=== PATIENT | male | born 1945 | race African-American/Black ===

== ENCOUNTER 2019-12-23 10:31 | Emergency (ER) | payer OTHER ==
[~2019-12-23] VITALS: Ht 172.7 cm; Wt 74.8 kg
[2019-12-23 11:57] LABS: ANION GAP 9 mmol/L (7-16); BUN 17 mg/dL (7-18); CALCIUM 9.6 mg/dL (8.5-10.1); CHLORIDE 102 mmol/L (98-107); CO2 29 mmol/L (21-32); CREATININE 1.2 mg/dL (0.7-1.3); GLUCOSE 149 mg/dL (74-106); POTASSIUM 4.5 mmol/L (3.5-5.1)
[2019-12-23 11:59] LABS: SODIUM 140 mmol/L (136-145)
[2019-12-23 12:05] LABS: TROPONIN-I <0.06 ng/mL (<0.06)
[2019-12-23 12:16] LABS: HEMATOCRIT 38.2 % (42.0-52.0); HEMOGLOBIN 12.6 gm/dL (14.0-18.0); MCH 24.7 pg (26.0-34.0); MCHC 32.9 g/dL (28.0-37.0); MCV 75.3 fL (80.0-100.0); PLATELET COUNT 192 thou/uL (150-400); RBC 5.07 mil/uL (4.50-6.00); RDW 16.6 % (10.5-14.5); WBC 5.1 thou/uL (4.0-11.0)
--- NOTE | 2019-12-23 12:41 | EKG ---
[facility] [place] [place] [address] ELECTROCARDIOGRAM REPORT Name: NURIA GREY Room #: REG [facility].#: [id number] Admission: 12/23/19 Attend Phys: Discharge: Date of : 41 Report #: [id number] THIS REPORT FOR: cc: Emili Mullen MD, Sequita MD Santiago,Kadeem CHAWLA [facility] ~ THIS REPORT FOR: //name// [facility] ED Test Date: 2019-12-23 Test Time: 11:30:09 Pat Name: NURIA GREY Department: Room: Gender: M Brim Greaser Operator: [facility] : 1945 Requested By: Jesus Manuel Daugherty Order Number: [id number] MD: Kadeem Aguirre Measurements Intervals [place] Rate: 59 P: 20 ME: 169 QRS: 20 QRSD: 86 T: 51 QT: 435 QTc: 431 Interpretive Statements Sinus rhythm Anteroseptal infarct, old Baseline wander in lead(s) V6 No previous ECG available for comparison Electronically Signed On 12-23-2019 12:41:25 CDT by Kadeem Aguirre [email or web address] <ELECTRONICALLY SIGNED> By: Kadeem Aguirre MD, FAC 12/23/19 124 113 29 Kadeem Aguirre MD, [facility] /EPI
[2019-12-23 12:51] LABS: PLATELET ESTIMATE NORMAL
[2019-12-23 13:45] VITALS: BP 174/94
== END 2019-12-23 13:50 | disposition home or self-care (01) ==
LOC: ER 10:31
PROVIDERS: Nurse Practitioner
DX: I10 Essential (primary) hypertension (principal); E03.9 Hypothyroidism, unspecified

== ENCOUNTER 2020-12-18 05:20 | Inpatient (IN) | payer OTHER ==
[~2020-12-18] VITALS: Ht 177.8 cm; Wt 72.6 kg
[2020-12-18 05:30] VITALS: BP 174/89
[2020-12-18 05:54] LABS: ABSOLUTE NEUTROPHILS 2.3 thou/uL (1.4-8.2); BASOPHILS 0.7 % (0.0-2.0); HEMATOCRIT 36.7 % (42.0-52.0); HEMOGLOBIN 11.9 gm/dL (14.0-18.0); LYMPHOCYTES 43.7 % (24.0-44.0); MCHC 32.3 g/dL (28.0-37.0); MCV 77.3 fL (80.0-100.0); MONOCYTES 14.3 % (1.0-8.0); PLATELET COUNT 219 thou/uL (150-400); POLYS 40.3 % (36.0-66.0); RBC 4.75 mil/uL (4.50-6.00); RDW 16.1 % (10.5-14.5); WBC 5.8 thou/uL (4.0-11.0)
--- NOTE | 2020-12-18 06:06 | NUR ---
0546 - Nitroglycerin gtt started at 5mcg/min, this RN noted order for Nitro states 10ml/hr which is not what the provider wishes, notified ERP who is looking for a titratable order for Nitro gtt.
[2020-12-18 06:23] LABS: ANION GAP 9 mmol/L (7-16); BUN 22 mg/dL (7-18); CALCIUM 8.6 mg/dL (8.5-10.1); CHLORIDE 109 mmol/L (98-107); CO2 29 mmol/L (21-32); CREATININE 1.5 mg/dL (0.7-1.3); GLUCOSE 211 mg/dL (74-106); POTASSIUM 4.2 mmol/L (3.5-5.1); SODIUM 147 mmol/L (136-145)
[2020-12-18 07:14] LABS: INR 0.94; PROTIME 10.3 Seconds (10.5-12.1)
[2020-12-18] MEDS ORDERED: EZETIMIBE10 MG PO (08:39)
[2020-12-18] MEDS ORDERED: JARDIANCE10 MG PO (08:39)
[2020-12-18] MEDS ORDERED: ALLOPURINOL 10100 M2 PO (08:40)
[2020-12-18] MEDS ORDERED: LEVOTHYROXINE25 MCG PO (08:40)
--- NOTE | 2020-12-18 09:18 | EKG ---
[place] [address] [facility] [place] [address] ELECTROCARDIOGRAM REPORT Name: NURIA GREY Room #: REG MACY Barger#: [id number] Admission: 12/18/20 Attend Phys: Discharge: Date of : 41 Report #: [id number] [facility] ED Test Date: 2020-12-18 Test Time: 05:29:25 Pat Name: NURIA GREY Department: Room: Gender: M Scoop Machine Operator: mary reis : 1945 Requested By: Kike Stephenson Order Number: [id number] MD: Sam Sheriff Measurements Intervals [place] Rate: 61 P: 29 [place]: 165 QRS: 5 QRSD: 90 T: 91 QT: 466 QTc: 470 Interpretive Statements Sinus rhythm LVH with secondary repolarization abnormality Compared to ECG 12/23/2019 11:30:09 Left ventricular hypertrophy now present Early repolarization now present Myocardial infarct finding no longer present Electronically Signed On 12-18-2020 9:17:57 CDT by Sam Sheriff [email or web address] <ELECTRONICALLY SIGNED> By: Sam Sheriff MD 12/18/20916 0529 0529 Sam Sheriff MD /ALIZE
[2020-12-18 10:13] VITALS: BP 124/87
[2020-12-18 10:56] LABS: CHOLESTEROL 219 mg/dL (<200); HDL CHOLESTEROL 58 mg/dL (>40); LDL CHOLESTEROL 116 mg/dL (<100); TC:HDL 3.8 Ratio (Not establshd); TRIGLYCERIDE 227 mg/dL (<150); VLDL 45 mg/dL (<40)
[2020-12-18 13:00] VITALS: BP 162/83
--- NOTE | 2020-12-18 13:10 | CATHLAB ---
[facility] [place] [address] INVASIVE PROCEDURE REPORT Name: NURIA GREY Room #: 204-P ADM IN M.R.#: [id number] Admission: 12/18/20 Attend Phys: Henry Jiame MD Discharge: Date of : 41 Report #: [id number] THIS REPORT FOR: cc: Emili Mullen MD, Sequita MD Park, Jin S. MD ~ APPROVED REPORT Study performed: 12/18/2020 10:09:07 Patient Details Patient Status: ED Room #: The patient is a 75 year-old male Event Personnel Sam Sheriff Remediation Consultant, Anjali Angeles RTR Monitor, Ellie Verdin RN RN, Malu Constantino RTR Scrub, Gladys Schmidt Electric Lineman Procedures Performed Art Access - R femoral artery* Left Heart Cath w/or w/o Coronaries 4845352 [facility] [address] Place w/wo Plasty Single OM 117833 DANIEL Place w/wo Plasty Single RCA 826429 Hemostasis w/ Mynx 96722 Initial Mod Sed Same Phys/QHP Gr5y 655873 55164 Mod Sed Same Phys/QHP Ea 529383 Indication Non-STEMI , Dyspnea, Chest pain Risk Factors HypercholesterolemiaPhysical Activity, Hypertension, Diabetes Procedure Narrative The Right Groin^ was infiltrated with 1% Lidocaine subcutaneous anesthesia. A PINNACLE 6FR Sheath #[id number] sheath was inserted into the RFA^. Coronary angiography was performed using coronary diagnostic catheters. The right coronary system was accessed and visualized with a JR4 catheter. The left coronary system was accessed and visualized with a JL4 catheter. The left ventricle was accessed and visualized with a PIGTAIL catheter. Pre-demployment femoral angiogram was performed . Closure device was deployed with a Fr MYNXGRIP 6/7F #[id number]. The patient tolerated the procedure well and there were no complications associated with the procedure. There was no hematoma. [facility] [place] [address] INVASIVE PROCEDURE REPORT Name: MATILDANURIA Room #: 204-P [facility] IN .R.#: [id number] Admission: 12/18/20 Attend Phys: Henry Jaime MD Discharge: Date of : 41 Report #: [id number] Intraoperative Conscious Sedation Sedation start time: 10:59 Case end Time: 12:06 Fentanyl 50 mcg Versed 1 mg Fluoro Time: 17.00 minutes Dose: DAP 25781.20 cGycm2 1894 mGy Contrast Type and Amount: Visipaque 315 ml Coronary Angiography The patient's coronary anatomy is co- dominant. Diagnostic Cath Left Main The left main artery is a large-caliber vessel, appears angiographically normal. LAD The LAD is a moderate-sized caliber vessel, traverses the anterior wall and wraps around the apex. There is mild to moderate diffuse disease in the midsegment, 30 to 40%. Diagonal 1 This is a small to moderate-sized caliber vessel, with a moderate stenosis in the proximal segment, 50%. Diagonal 2 This is a small to moderate-sized caliber vessel, patent with no flow-limiting lesions. Circumflex The left circumflex artery is a codominant vessel, supplies 3 obtuse marginal arteries. There is mild disease in the proximal segment. OM1 There is a severe stenosis in the proximal segment, 90%. OM2 This is a moderate-sized caliber vessel, patent with no flow-limiting lesions. OM3 This is a small to moderate-sized caliber vessel, patent with no flow-limiting lesions. Right Coronary The RCA is a moderate-sized caliber vessel with mild diffuse disease proximally. There is a severe stenosis in the distal segment, 95%. R PDA There is a severe occlusion in the proximal segment, 95%. Left Ventriculography Left Ventriculography was not performed. An LVEDP was measured and there is no gradient across the outflow tract. Hemodynamics The aortic pressure is 142/67 mmHg with a mean of 44 mmHg. The left ventricular pressure is 145/5 mmHg with a mean of mmHg. The left ventricular end diastolic pressure is 13 mmHg. [facility] [address] [place] [address] INVASIVE PROCEDURE REPORT Name: NURIA GREY Room #: 204-P [facility] IN M.R.#: [id number] Admission: 12/18/20 Attend Phys: Henry Jaime MD Discharge: Date of : 41 Report #: [id number] PCI Technique Lesion Percutaneous coronary intervention was performed on the distal right coronary artery. The lesion stenosis prior to intervention was 95% with ALEKSANDAR 3 flow. A LAUNCHER 6FR JR 4 #[id number] Guide Catheter was used to engage the ostium. A Luge Wire .014 x 182CM #[id number] Interventional Guidewire was used to cross the lesion. BALLOON DILATION A Balloon catheter Euphora RX 2.25 x 12 #[id number] was inserted and inflated up to 8.00atm for 9seconds. Additional Inflation: 8.00atm for 10seconds. STENT DEPLOYMENT A drug-eluting stent RESOLUTE ELVIN RX 2.5 X 15 #[id number] was inserted and inflated up to 18.00atm for 19seconds. POST STENT DEPLOYMENT BALLOON DILATION A Balloon catheter Euphora NC RX 2.75 x 12 #[id number] was inserted and inflated up to 14.00atm for 12seconds. Additional Inflation: 18.00atm for 15seconds. Final angiography reveals 0 % stenosis with ALEKSANDAR 3 flow. PCI Technique Lesion 2 Percutaneous Coronary Intervention was performed on the right posterior descending artery. The lesion stenosis prior to intervention was 90% with ALEKSANDAR 3 flow. A LAUNCHER 6FR JR 4 #[id number] Guide Catheter was used to engage the ostium. A Luge Wire .014 x 182CM #[id number] Interventional Guidewire was used to cross the lesion. Balloon Dilation A Balloon catheter Euphora RX 2.25 x 12 #[id number] was inserted and inflated up to 6.00atm for 13seconds. Stent Deployment A drug-eluting stent RESOLUTE ELVIN RX 2.25 X 15 #[id number] was inserted and inflated up to 12.00atm for 16seconds. Final angiography reveals 0 % stenosis with ALEKSANDAR 3 flow. PCI Technique Lesion 3 Percutaneous Coronary Intervention was performed on the first obtuse marginal branch segment. The lesion stenosis prior to intervention was 90% with ALEKSANDAR 3 flow. A VISTA 6FR XB 3.5 #398708 Guide Catheter [address] [address] INVASIVE PROCEDURE REPORT Name: NURIA GREY Room #: 204-P [facility] IN ..#: [id number] Admission: 12/18/20 Attend Phys: Henry Jaime MD Discharge: Date of : 41 Report #: [id number] was used to engage the ostium. A Luge Wire .014 x 182CM #[id number] Interventional Guidewire was used to cross the lesion. Balloon Dilation A Balloon catheter Euphora RX 2.25 x 10 #[id number] was inserted and inflated up to 8.00atm for 10seconds. Additional Inflation: 8.00atm for 8seconds. Stent Deployment A drug-eluting stent RESOLUTE ELVIN RX 2.25 X 18 #[id number] was inserted and inflated up to 12.00atm for 14seconds. Final angiography reveals 0 % stenosis with ALEKSANDAR 3 flow. Conclusion 1. Successful insertion of a drug-eluting stent into the distal RCA stenosis. 2. Successful insertion of a drug-eluting stent to the proximal PDA lesion. 3. Successful insertion of a drug-eluting stent into the proximal segment of the first obtuse marginal artery. 4. There is mild to moderate disease in the LAD and first diagonal arteries. 5. Recommend dual antiplatelet therapy and aggressive risk factor management. <ELECTRONICALLY SIGNED> By: Sam Sheriff MD 12/18/20 1310 1310 1310 Sam Sheriff MD /INF
[2020-12-18 16:00] VITALS: BP 168/89
[2020-12-18] MEDS ORDERED: METOPROLOL SUCC25 M1 PO (16:04)
[2020-12-18] MEDS ORDERED: BRILINTA90 MG PO (16:04)
[2020-12-18] MEDS ORDERED: LIPITOR40 MG PO (16:04)
[2020-12-18] MEDS ORDERED: BAYER CHEWABLE81 MG PO (16:04)
--- NOTE | 2020-12-18 19:33 | NUR ---
[age] YEAR OLD MALE ADMITTED TO AFTER HAVING HEART CATH. PT ALERT AND ORIENTED TIMES FOUR. VSS, IVF INFUSING PER ORDER. PT DENIES PAIN/SOA. RIGHT GROIN SITE SOFT DRESSING C/D/I. WILL CONTINUE TO MONITOR.
[2020-12-18 19:40] VITALS: BP 170/84
[2020-12-19 00:06] LABS: GLYCOHEMOGLOBIN (HGB A1C) 9.2 % (4.8-5.6)
[2020-12-19 00:17] VITALS: BP 161/88
[2020-12-19 02:38] VITALS: BP 161/88
[2020-12-19 04:18] LABS: HEMOGLOBIN 12.2 gm/dL (14.0-18.0); MCH 24.4 pg (26.0-34.0); MCHC 32.1 g/dL (28.0-37.0); MCV 75.8 fL (80.0-100.0); RBC 5.01 mil/uL (4.50-6.00); RDW 15.7 % (10.5-14.5); WBC 6.4 thou/uL (4.0-11.0)
--- NOTE | 2020-12-19 04:26 | NUR ---
ASSUMED PT CARE AT 1900, PT IS AWAKE, ALERT AND ORIENTEDX4, SR ON TELE, DENIES CHEST PAIN OR SOB, ASSESSMENTS CHARTED, BP ELEVATED IN THE 170S SYSTOLIC, DR. ALEX NOTIFIED, ORDERS RECEIVED AND IMPLEMENTED, RIGHT GROIN SITE CDI, NO HEMATOMA, AMBULATED TO THE BATHROOM WITH STBY ASSIST, PLAN FOR DISCHARGE TODAY, PROGRESSING WELL TOWARDS POC
[2020-12-19 04:38] VITALS: BP 149/75
[2020-12-19 04:51] LABS: ALBUMIN 3.1 g/dL (3.4-5.0); ANION GAP 8 mmol/L (7-16); BUN 19 mg/dL (7-18); CALCIUM 8.4 mg/dL (8.5-10.1); CHLORIDE 108 mmol/L (98-107); CHOLESTEROL 219 mg/dL (<200); CO2 26 mmol/L (21-32); CREATININE 1.2 mg/dL (0.7-1.3); GLUCOSE 168 mg/dL (74-106); HDL CHOLESTEROL 61 mg/dL (>40); LDL CHOLESTEROL 123 mg/dL (<100); POTASSIUM 3.8 mmol/L (3.5-5.1); SGOT 15 U/L (15-37); SGPT 18 U/L (30-65); SODIUM 142 mmol/L (136-145); TC:HDL 3.6 Ratio (Not establshd); TOTAL BILIRUBIN 0.3 mg/dL (0.2-1.0); TOTAL PROTEIN 7.3 g/dL (6.4-8.2); TRIGLYCERIDE 176 mg/dL (<150); VLDL 35 mg/dL (<40)
[2020-12-19 05:00] LABS: SERUM ASSESSMENT Clear
[2020-12-19 07:40] VITALS: BP 136/84; BP 144/82
--- NOTE | 2020-12-19 11:24 | EKG ---
[address] [place] [address] ELECTROCARDIOGRAM REPORT Name: NURIA GREY Room #: 204-P ADM IN M.R.#: [id number] Admission: 12/18/20 Attend Phys: Henry Jaime MD Discharge: Date of : 41 Report #: [id number] [facility] Test Date: 2020-12-19 Test Time: 07:25:54 Pat Name: NURIA GREY Department: Room: 204 P Gender: M Quarry Supervisor Open Pit: : 1945 Requested By: Sam Sheriff Order Number: [id number] MD: Sam Sheriff Measurements Intervals [place] Rate: 62 P: 39 PA: 165 QRS: -5 QRSD: 86 T: -18 QT: 478 QTc: 486 Interpretive Statements Sinus rhythm Anteroseptal infarct, old Compared to ECG 12/18/2020 12:53:05 No significant changes Electronically Signed On 12-19-2020 11:24:36 CDT by Sam Sheriff [email or web address] <ELECTRONICALLY SIGNED> By: Sam Sheriff MD 12/19/20 1124 0725 0725 Sam Sheriff MD /ALIZE
--- NOTE | 2020-12-19 11:35 | EKG ---
[address] [address] ELECTROCARDIOGRAM REPORT Name: NURIA GREY Room #: 204-P ADM IN M.R.#: [id number] Admission: 12/18/20 Attend Phys: Henry Jaime MD Discharge: Date of : 41 Report #: [id number] [facility] Test Date: 2020-12-18 Test Time: 12:53:05 Pat Name: NURIA GREY Department: Room: 204 P Gender: M Chicken Dresser: PANDA : 1945 Requested By: Sam Sheriff Order Number: [id number] MD: Sam Sheriff Measurements Intervals [place] Rate: 57 P: 47 W[place]: 167 QRS: 10 QRSD: 98 T: 36 QT: 456 QTc: 444 Interpretive Statements Sinus rhythm Anteroseptal infarct, old Compared to ECG 12/18/2020 05:29:25 Myocardial infarct finding now present Left ventricular hypertrophy no longer present Early repolarization no longer present Electronically Signed On 12-19-2020 11:35:24 CDT by Sam Sheriff [email or web address] <ELECTRONICALLY SIGNED> By: Sam Sheriff MD 12/19/20 1135 1253 52 MD CHARLES Hunt
[2020-12-19 11:50] VITALS: BP 142/83
[2020-12-19] MEDS ORDERED: AMLODIPINE BESY10 MG PO (13:00)
[2020-12-19 13:32] VITALS: BP 142/83
--- NOTE | 2020-12-19 15:15 | NUR ---
patient discharged today 12/19/2020 to home. vital signs stable at this time. patient denies pain. patient denies shortness of air and chest pain. Patient discharged to home with spouse present via personal vehicle. Discharge summary and education provided. Provided education that patient should not soak right groin site or take a bath until he has followed up with cardiology. Patient has no questions regarding discharge at this time and is agreeable to plan.
== END 2020-12-19 15:21 | disposition home or self-care (01) | DRG 246 ==
LOC: ER 05:20 → EROBS 08:16 → 2N 08:16
PROVIDERS: Emergency Medicine; Internal Medicine Cardiovascular Disease; Nurse Practitioner; ADMIT Internal Medicine; ATTEND Internal Medicine
PROC: 027236Z Dilation of Coronary Artery, Three Arteries with Three Drug-eluting Intraluminal Devices, Percutaneous Approach (ICD-10-PCS; principal; 2020-12-18)
PROC: 4A023N7 Measurement of Cardiac Sampling and Pressure, Left Heart, Percutaneous Approach (ICD-10-PCS; principal; 2020-12-18)
PROC: B211YZZ Fluoroscopy of Multiple Coronary Arteries using Other Contrast (ICD-10-PCS; principal; 2020-12-18)
PROC: B41FYZZ Fluoroscopy of Right Lower Extremity Arteries using Other Contrast (ICD-10-PCS; principal; 2020-12-18)
DX: I21.4 Non-ST elevation (NSTEMI) myocardial infarction (principal); N17.0 Acute kidney failure with tubular necrosis; E87.0 Hyperosmolality and hypernatremia; E78.5 Hyperlipidemia, unspecified; E03.9 Hypothyroidism, unspecified; M10.9 Gout, unspecified; E11.65 Type 2 diabetes mellitus with hyperglycemia; I12.9 Hypertensive chronic kidney disease with stage 1 through stage 4 chronic kidney disease, or unspecified chronic kidney disease; E11.22 Type 2 diabetes mellitus with diabetic chronic kidney disease; N18.9 Chronic kidney disease, unspecified; Z79.82 Long term (current) use of aspirin; Z79.899 Other long term (current) drug therapy; Z20.822 Contact with and (suspected) exposure to COVID-19
CPT/HCPCS: 10081

== ENCOUNTER → 2021-03-03 | Outpatient (CLI) | payer OTHER ==
[~2021-03-03] MED LIST: ALLOPURINOL 10100 M2 PO; AMLODIPINE BESY10 MG PO; BAYER CHEWABLE81 MG PO; BRILINTA90 MG PO; EZETIMIBE10 MG PO; JARDIANCE10 MG PO; LEVOTHYROXINE25 MCG PO; LIPITOR40 MG PO; METOPROLOL SUCC25 M1 PO
== END ==
LOC: SJCVCIMAG 09:35
PROVIDERS: ATTEND Internal Medicine Cardiovascular Disease
DX: I08.8 Other rheumatic multiple valve diseases (principal); E11.9 Type 2 diabetes mellitus without complications; I25.10 Atherosclerotic heart disease of native coronary artery without angina pectoris; I10 Essential (primary) hypertension

== ENCOUNTER 2021-04-02 04:29 | Inpatient (IN) | payer OTHER ==
[~2021-04-02] VITALS: Ht 172.7 cm; Wt 72.6 kg
[2021-04-02 05:25] LABS: ABSOLUTE NEUTROPHILS 7.6 thou/uL (1.4-8.2); BASOPHILS 0.1 % (0.0-2.0); CALCIUM 8.8 mg/dL (8.5-10.1); CREATININE 1.8 mg/dL (0.7-1.3); EOSINOPHILS 0.1 % (0.0-3.0); HEMATOCRIT 34.2 % (42.0-52.0); HEMOGLOBIN 11.1 gm/dL (14.0-18.0); LYMPHOCYTES 14.8 % (24.0-44.0); MCH 24.8 pg (26.0-34.0); MCHC 32.4 g/dL (28.0-37.0); MCV 76.6 fL (80.0-100.0); MONOCYTES 8.4 % (1.0-8.0); PLATELET COUNT 170 thou/uL (150-400); POLYS 76.6 % (36.0-66.0); RBC 4.46 mil/uL (4.50-6.00); RDW 16.2 % (10.5-14.5); WBC 9.9 thou/uL (4.0-11.0)
[2021-04-02 07:47] VITALS: BP 149/85
[2021-04-02] MEDS ORDERED: TRADJENTA5 MG PO (09:24)
[2021-04-02 10:00] VITALS: BP 173/88; BP 176/82
[2021-04-02 11:07] VITALS: BP 155/82
--- NOTE | 2021-04-02 13:20 | NUR ---
Received pt to room 200 from ER approx. 0745. Pt on RA, SA on the monitor. Pt c/o substernal pain & headache, rating 4/10. Pt up to use restroom and reported that he felt very "weak". Pt in to high 140s with ambulation. Pt denying any other needs at this time. Admission assessment performed & pt oriented to room.
[2021-04-02] MEDS ORDERED: TOPROL XL50 MG PO (13:58)
[2021-04-02] MEDS ORDERED: PROTONIX40 M4 PO (14:03)
[2021-04-02 15:35] VITALS: BP 120/79
[2021-04-02 16:34] LABS: APTT 24.3 Seconds (24.5-32.8); PROTIME 10.9 Seconds (10.5-12.1)
[2021-04-02 20:15] VITALS: BP 132/78
[2021-04-03 04:45] VITALS: BP 109/62
[2021-04-03 07:00] VITALS: BP 118/57
[2021-04-03 09:51] LABS: CREATININE 1.5 mg/dL (0.7-1.3); MAGNESIUM 1.6 mg/dL (1.8-2.4); POTASSIUM 3.5 mmol/L (3.5-5.1)
[2021-04-03 11:00] VITALS: BP 107/53
[2021-04-03] MEDS ORDERED: TOPROL XL100 MG PO (11:04)
[2021-04-03 11:46] VITALS: BP 107/53
--- NOTE | 2021-04-03 13:01 | NUR ---
DISCHARGED PATIENT. EXPLAINED AND HIGHLIGHTED DISCHARGE INSTRUCTIONS. INCLUDING MEDICATION CHANGES AND UPCOMING APPOINTMENTS. REMOVED IV WITH TIP INTACT. REMOVED SEED CORN PRODUCTION MANAGER. PT AND SPOUSE STATED THEY UNDERSTOOD THE DISCHARGE INSTRUCTIONS AND DID NOT HAVE ANY QUESTIONS.
[2021-04-03 13:03] VITALS: BP 107/53
--- NOTE | 2021-04-05 07:13 | EKG ---
[address] [address] ELECTROCARDIOGRAM REPORT Name: NURIA GREY Room #: 200-I [facility] IN M.R.#: [id number] Admission: 04/02/21 Attend Phys: Tao Moise MD Discharge: 04/03/21 Date of : 41 Report #: [id number] [facility] ED Test Date: 2021-04-02 Test Time: 04:37:49 Pat Name: NURIA GREY Department: Room: 200 I Gender: M Aging Department Supervisor: alexys : 1945 Requested By: Kike Stephenson Order Number: [id number] MD: Kadeem Aguirre Measurements Intervals [place] Rate: 47 P: 36 CT: 172 QRS: 12 QRSD: 94 T: 30 QT: 504 QTc: 446 Interpretive Statements Sinus bradycardia LVH by voltage Anterior Q waves, possibly due to LVH Compared to ECG 12/19/2020 07:25:54 Left ventricular hypertrophy now present Q waves now present Sinus rhythm no longer present Myocardial infarct finding no longer present Electronically Signed On 04-05-2021 7:13:34 SPRING SETTER by Kadeem Aguirre [email or web address] <ELECTRONICALLY SIGNED> By: Kadeem Aguirre MD, FACC 04/05/21 0713 6 6 Kadeem Aguirre MD, [facility] /EPI
--- NOTE | 2021-04-05 07:13 | EKG ---
[address] [address] ELECTROCARDIOGRAM REPORT Name: NURIA GREY Room #: 200-I [facility] IN M.R.#: [id number] Admission: 04/02/21 Attend Phys: Tao Moise MD Discharge: 04/03/21 Date of : 41 Report #: [id number] [facility] Test Date: 2021-04-02 Test Time: 08:27:33 Pat Name: NURIA GREY Department: Room: 200 I Gender: M Kiln Stoker: YONY : 1945 Requested By: Loan Jo Order Number: [id number] MD: Kadeem Aguirre Measurements Intervals [place] Rate: 92 P: 45 PA: 189 QRS: 5 QRSD: 86 T: 44 QT: 389 QTc: 482 Interpretive Statements Sinus rhythm Probable left atrial enlargement Anteroseptal infarct, old Compared to ECG 04/02/2021 04:37:49 Myocardial infarct finding now present Sinus bradycardia no longer present Left ventricular hypertrophy no longer present Q waves no longer present Electronically Signed On 04-05-2021 7:13:43 SNUBBER by Kadeem Aguirre [email or web address] <ELECTRONICALLY SIGNED> By: Kadeem Aguirre MD, FACC 04/05/21712 6 6 Kadeem Aguirre MD, [facility] /EPI
--- NOTE | 2021-04-05 07:14 | EKG ---
[address] [address] ELECTROCARDIOGRAM REPORT Name: NURIA GREY Room #: 200-I [facility] IN M.R.#: [id number] Admission: 04/02/21 Attend Phys: Tao Moise MD Discharge: 04/03/21 Date of : 41 Report #: [id number] [facility] Test Date: 2021-04-02 Test Time: 12:16:20 Pat Name: NURIA GREY Department: Room: 200 I Gender: M Skidder Runner: YONY : 1945 Requested By: Tao Moise Order Number: [id number] MD: Kadeem Aguirre Measurements Intervals [place] Rate: 98 P: 42 RI: 164 QRS: -9 QRSD: 80 T: -25 QT: 338 QTc: 432 Interpretive Statements Sinus rhythm Atrial premature complexes Probable left atrial enlargement Anteroseptal infarct, old Borderline T abnormalities, inferior leads Compared to ECG 04/02/2021 08:27:33 Atrial premature complex(es) now present T-wave abnormality now present Myocardial infarct finding still present Electronically Signed On 04-05-2021 7:14:25 ENGINEERING GROUP LEADER by Kadeem Aguirre [email or web address] <ELECTRONICALLY SIGNED> By: Kadeem Aguirre MD, FACC 04/05/21 0714 15 15 Kadeem Aguirre MD, FAC /EPI
--- NOTE | 2021-04-05 07:15 | EKG ---
[address] [address] ELECTROCARDIOGRAM REPORT Name: NURIA GREY Room #: 200-I [facility] IN M.R.#: [id number] Admission: 04/02/21 Attend Phys: Tao Moise MD Discharge: 04/03/21 Date of : 41 Report #: [id number] [facility] Test Date: 2021-04-02 Test Time: 15:42:24 Pat Name: NURIA GREY Department: Room: 200 I Gender: M Convertible Sofa Bedspring Tester: TERRANCE : 1945 Requested By: Tao Moise Order Number: [id number] MD: Kadeem Aguirre Measurements Intervals [place] Rate: 88 P: 42 NV: 170 QRS: 2 QRSD: 85 T: 28 QT: 381 QTc: 461 Interpretive Statements Sinus rhythm Abnormal R-wave progression, early transition Borderline T wave abnormalities Compared to ECG 04/02/2021 12:16:20 Atrial premature complex(es) no longer present Myocardial infarct finding no longer present T-wave abnormality still present Electronically Signed On 04-05-2021 7:14:58 UROGYNAECOLOGIST by Kadeem Aguirre [email or web address] <ELECTRONICALLY SIGNED> By: Kadeem Aguirre MD, FACC 04/05/21 0714 1542 1542 Kadeem Aguirre MD, FAC /EPI
--- NOTE | 2021-04-05 07:17 | EKG ---
[address] [place] [address] ELECTROCARDIOGRAM REPORT Name: NURIA GREY Room #: 200-I [facility] IN M.R.#: [id number] Admission: 04/02/21 Attend Phys: Tao Moise MD Discharge: 04/03/21 Date of : 41 Report #: [id number] [facility] Test Date: 2021-04-03 Test Time: 07:46:15 Pat Name: NURIA GREY Department: Room: 200 I Gender: M Van Cdl Driver: CHANDLER : 1945 Requested By: Casimiro Corona Order Number: [id number] MD: Kadeem Aguirre Measurements Intervals [place] Rate: 75 P: 47 CT: 161 QRS: 8 QRSD: 80 T: 47 QT: 413 QTc: 462 Interpretive Statements Sinus rhythm Abnormal R-wave progression, early transition Compared to ECG 04/02/2021 15:42:24 T-wave abnormality no longer present Electronically Signed On 04-05-2021 7:16:46 RN SURGICAL PCU by Kadeem Aguirre [email or web address] <ELECTRONICALLY SIGNED> By: Kadeem Aguirre MD, [facility] [address] 5 5 Kadeem Aguirre MD, [facility] /EPI
== END 2021-04-03 13:00 | disposition home or self-care (01) | DRG 682 ==
LOC: ER 04:29 → EROBS 06:24 → 2N 07:42
PROVIDERS: Emergency Medicine; ADMIT Hospitalist; ATTEND Hospitalist
DX: N17.0 Acute kidney failure with tubular necrosis (principal); I21.A1 Myocardial infarction type 2; I38 Endocarditis, valve unspecified; R65.10 Systemic inflammatory response syndrome (SIRS) of non-infectious origin without acute organ dysfunction; N17.9 Acute kidney failure, unspecified; R07.89 Other chest pain; I10 Essential (primary) hypertension; Z20.822 Contact with and (suspected) exposure to COVID-19; E78.5 Hyperlipidemia, unspecified; I25.10 Atherosclerotic heart disease of native coronary artery without angina pectoris; E11.65 Type 2 diabetes mellitus with hyperglycemia; Z79.82 Long term (current) use of aspirin; Z79.899 Other long term (current) drug therapy; I25.2 Old myocardial infarction; K21.9 Gastro-esophageal reflux disease without esophagitis
CPT/HCPCS: 10081

== ENCOUNTER 2021-05-23 00:09 | Inpatient (IN) | payer OTHER ==
[~2021-05-23] VITALS: Ht 172.7 cm; Wt 64.0 kg
[2021-05-23] VITALS (31 sets, daily range): BP systolic 99–155; BP diastolic 59–86
[~2021-05-23 00:09] MED LIST changes: +PROTONIX40 M4 PO; +TOPROL XL100 MG PO; +TOPROL XL50 MG PO; +TRADJENTA5 MG PO
[2021-05-23 00:53] LABS: ABSOLUTE NEUTROPHILS 9.1 thou/uL (1.4-8.2); BASOPHILS 0.3 % (0.0-2.0); HEMATOCRIT 41.6 % (42.0-52.0); HEMOGLOBIN 12.8 gm/dL (14.0-18.0); LYMPHOCYTES 7.5 % (24.0-44.0); MCH 24.7 pg (26.0-34.0); MCHC 30.9 g/dL (28.0-37.0); MONOCYTES 6.3 % (1.0-8.0); PLATELET COUNT 202 thou/uL (150-400); POLYS 85.9 % (36.0-66.0); RBC 5.19 mil/uL (4.50-6.00); RDW 16.3 % (10.5-14.5); WBC 10.7 thou/uL (4.0-11.0)
[2021-05-23 00:56] LABS: BE(vivo) -14.6 mmol/L (-2 to +3); PCO2 VENOUS 30.8 mmHg (41.0-51.0); PO2 VENOUS 61.3 mmHg (35.0-45.0)
[2021-05-23 01:03] LABS: CALCIUM 9.5 mg/dL (8.5-10.1); CREATININE 3.1 mg/dL (0.7-1.3)
[2021-05-23 01:10] LABS: ALBUMIN 3.5 g/dL (3.4-5.0); POTASSIUM 5.7 mmol/L (3.5-5.1); TOTAL BILIRUBIN 0.4 mg/dL (0.2-1.0); TOTAL PROTEIN 8.2 g/dL (6.4-8.2)
[2021-05-23 02:19] LABS: URINE BILIRUBIN NEGATIVE (Negative); URINE BLOOD 1+ (Negative); URINE CLARITY CLEAR; URINE COLOR YELLOW; URINE GLUCOSE-RANDOM* 3+ (Negative); URINE KETONES 2+ (Negative); URINE LEUKOCYTES-REFLEX NEGATIVE (Negative); URINE NITRITE-REFLEX NEGATIVE (Negative); URINE PROTEIN (DIPSTICK) NEGATIVE (Negative); URINE SPECIFIC GRAVITY 1.015 (1.005-1.035); URINE UROBILINOGEN 0.2 E.U./dl (0.2-1.0)
[2021-05-23 02:34] LABS: BACTERIA-REFLEX 1-9 Few /HPF (None Seen); CRYSTALS None Seen /LPF (None Seen); HYALINE CASTS 0-3 Few /LPF (None Seen); MUCUS 0-3 Light strn/LPF (None Seen); SQUAMOUS 0-3 Few /LPF (0-3); URINE RBC 3-10 Few /HPF (NONE SEEN); URINE WBC-REFLEX 0-5 Rare /HPF (0-5)
[2021-05-23 03:23] LABS: MAGNESIUM 3.4 mg/dL (1.8-2.4); PHOSPHORUS 6.8 mg/dL (2.6-4.7)
[2021-05-23 03:28] LABS: CHOLESTEROL 165 mg/dL (<200); HDL CHOLESTEROL 52 mg/dL (>40); LDL CHOLESTEROL 43 mg/dL (<100); TC:HDL 3.2 Ratio (Not establshd); TRIGLYCERIDE 353 mg/dL (<150); VLDL 71 mg/dL (<40)
[2021-05-23 03:31] LABS: SERUM ASSESSMENT Clear
[2021-05-23] MEDS ORDERED: GLIPIZIDE 10 MG10 MG PO (03:43)
[2021-05-23] MEDS ORDERED: METFORMIN HCL500 M3 PO (03:44)
[2021-05-23] MEDS ORDERED: LEVO-T25 MCG PO (03:46)
[2021-05-23] MEDS ORDERED: ZETIA10 MG PO (03:46)
[2021-05-23] MEDS ORDERED: NORVASC10 MG PO (03:47)
[2021-05-23] MEDS ORDERED: VALSARTAN320 MG PO (03:47)
[2021-05-23] MEDS ORDERED: TOPROL XL25 MG PO (03:48)
[2021-05-23] MEDS ORDERED: CLONIDINE HCL0.1 MG PO (03:49)
[2021-05-23] MEDS ORDERED: PROTONIX40 M2 PO (03:49)
[2021-05-23 03:51] LABS: ALBUMIN 3.3 g/dL (3.4-5.0); CALCIUM 9.4 mg/dL (8.5-10.1); CREATININE 2.8 mg/dL (0.7-1.3); PHOSPHORUS 6.7 mg/dL (2.5-4.9); POTASSIUM 5.6 mmol/L (3.5-5.1)
[2021-05-23] MEDS ORDERED: ASA81BEC PO (03:52)
[2021-05-23] MEDS ORDERED: LIPITOR40 MG PO (03:52)
[2021-05-23] MEDS ORDERED: TOPROL XL100 MG PO (04:51)
--- NOTE | 2021-05-23 11:13 | EKG ---
[place] [address] [facility] [address] ELECTROCARDIOGRAM REPORT Name: NURIA GREY Room #: 249-P ADM IN M.R.#: [id number] Admission: 05/23/21 Attend Phys: Jose Zuniga MD Discharge: Date of : 41 Report #: [id number] [facility] ED Test Date: 2021-05-23 Test Time: 00:53:07 Pat Name: NURIA GREY Department: Room: 249 Gender: M Hospice Music Therapist: willem : 1945 Requested By: Dean Glasgow Order Number: [id number] MD: Malcolm Briscoe Measurements Intervals [place] Rate: 85 P: 55 [place]: 140 QRS: 16 QRSD: 92 T: 32 QT: 424 QTc: 505 Interpretive Statements Sinus rhythm Anteroseptal infarct, old Prolonged QT interval Compared to ECG 04/03/2021 07:46:15 Septal Q waves are more prominent Prolonged QT interval now present Electronically Signed On 05-23-2021 11:13:18 PROPOSAL WRITER by Malcolm Briscoe [email or web address] <ELECTRONICALLY SIGNED> By: Malcolm Briscoe MD, [facility] 05/23/21 1113 005 Malcolm Briscoe MD, [facility] /EPI
[2021-05-23 11:26] LABS: ALBUMIN 3.4 g/dL (3.4-5.0); CALCIUM 10.4 mg/dL (8.5-10.1); CREATININE 2.5 mg/dL (0.7-1.3); MAGNESIUM 3.6 mg/dL (1.8-2.4); PHOSPHORUS 4.4 mg/dL (2.6-4.7); POTASSIUM 4.9 mmol/L (3.5-5.1)
--- NOTE | 2021-05-23 11:43 | NUR ---
DR IYER AT BEDSIDE, NOTIFIED THAT DIFFERENCE IN PATIENT FINGERSTICK GLUCOSE AND LAB DRAWN GLUCOSE >100. CRITICAL NA+ LEVEL REPORTED 163, DR IYER AWARE. CONCERN THAT LAB RESULT IMPACTED BY IVF RUNNING IN SAME ARM PHLEB SITE. OK TO RECHECK LABS SCHEDULED AT 1230 AND ADJUST DKA PLAN WITH RESULTS. PLAN TO KEEP PT ON INSULIN GTT THROUGH 2/14 AM. CONTINUING WITH LAB DRAWN BG FOR CONSISTENCY.
[2021-05-23 14:34] LABS: CALCIUM 9.7 mg/dL (8.5-10.1); CREATININE 1.9 mg/dL (0.7-1.3); MAGNESIUM 3.1 mg/dL (1.8-2.4); PHOSPHORUS 3.4 mg/dL (2.6-4.7); POTASSIUM 4.2 mmol/L (3.5-5.1)
--- NOTE | 2021-05-23 16:14 | NUR ---
A #4F MIDLINE WAS PLACED IN THE RIGHT BRACHIAL VEIN PER HOSPITAL POLICY. THE LINE WAS TRIMMED TO 12CM. SECURED AND RELEASED FOR USE
[2021-05-23 16:20] LABS: ALBUMIN 2.9 g/dL (3.4-5.0); CALCIUM 9.3 mg/dL (8.5-10.1); CREATININE 1.8 mg/dL (0.7-1.3); MAGNESIUM 2.7 mg/dL (1.8-2.4); PHOSPHORUS 2.9 mg/dL (2.6-4.7); POTASSIUM 4.3 mmol/L (3.5-5.1)
--- NOTE | 2021-05-23 16:38 | NUR ---
ASSUMED CARE AT 0750 FROM ED HOLDING, PT TRANSFERRED TO ICU BED 249. CLOTHING/BELONGINGS/MED AT BEDSIDE, HAYDEN CAME AND TOOK SOILED CLOTHES AND MEDS HOME, MIKKI FRESH CLOTHES IN CLOSET. PT ON RA, NO C/O PAIN, LETHARGIC, ORIENTED X4. DKA PROTOCOL INITIATED IN ER, CONTINUED IN ICU. DR IYER NOTIFIED OF ADMIT.
[2021-05-23 21:11] LABS: ALBUMIN 2.8 g/dL (3.4-5.0); CREATININE 1.6 mg/dL (0.7-1.3); MAGNESIUM 2.6 mg/dL (1.8-2.4); PHOSPHORUS 2.3 mg/dL (2.6-4.7); POTASSIUM 4.2 mmol/L (3.5-5.1)
[2021-05-24] VITALS (37 sets, daily range): BP systolic 107–138; BP diastolic 68–90
[2021-05-24 00:55] LABS: ALBUMIN 2.7 g/dL (3.4-5.0); CALCIUM 8.7 mg/dL (8.5-10.1); CREATININE 1.6 mg/dL (0.7-1.3); PHOSPHORUS 2.2 mg/dL (2.5-4.9)
[2021-05-24 04:06] LABS: ESTIMATED AVERAGE GLUCOSE > 398 mg/dL (()); GLYCOHEMOGLOBIN (HGB A1C) > 15.5 % (4.8-5.6)
[2021-05-24 09:41] LABS: ALBUMIN 2.9 g/dL (3.4-5.0); CALCIUM 9.4 mg/dL (8.5-10.1); CREATININE 1.4 mg/dL (0.7-1.3); MAGNESIUM 2.6 mg/dL (1.8-2.4); POTASSIUM 4.8 mmol/L (3.5-5.1)
--- NOTE | 2021-05-24 11:40 | NUR ---
roro historian, Patient is a 76-year-old male. History of DM, HTN, hypothyroidism, gout, hyperlipidemia, GERD, and CAD s/p NSTEMI/stents. He came to ED from home with complaints for weakness and more tired past few day. Cm visited with Florentin at bedside, A & O to self and place, pleasant, soft spoken with forgetfulness. Cm called Catrachita, # [phone], left message requesting a call back. Noted he been here in past for chest pains, last visit here was in March 2021. He lives in house, 10 steps with handrail to enter, he manage own medication, checks his blood sugar at home but is not on any insulin. Drives and works outside the home. PT and OT to eval, will cont. following as needed, possible will requirer some home health when stable to nh home.
[2021-05-24 13:59] LABS: CALCIUM 8.7 mg/dL (8.5-10.1); CREATININE 1.4 mg/dL (0.7-1.3); POTASSIUM 4.5 mmol/L (3.5-5.1)
[2021-05-24 14:03] LABS: ALBUMIN 2.5 g/dL (3.4-5.0); MAGNESIUM 2.4 mg/dL (1.8-2.4)
[2021-05-25] VITALS (15 sets, daily range): BP systolic 122–147; BP diastolic 72–97
[2021-05-25 04:17] LABS: ABSOLUTE NEUTROPHILS 5.3 thou/uL (1.4-8.2); BASOPHILS 0.2 % (0.0-2.0); EOSINOPHILS 0.2 % (0.0-3.0); HEMATOCRIT 31.2 % (42.0-52.0); LYMPHOCYTES 17.7 % (24.0-44.0); MCH 24.7 pg (26.0-34.0); MCHC 32.7 g/dL (28.0-37.0); MCV 75.4 fL (80.0-100.0); MONOCYTES 7.2 % (1.0-8.0); POLYS 74.7 % (36.0-66.0); RBC 4.14 mil/uL (4.50-6.00); RDW 15.8 % (10.5-14.5); WBC 7.1 thou/uL (4.0-11.0)
[2021-05-25 04:20] LABS: HEMOGLOBIN 10.2 gm/dL (14.0-18.0)
[2021-05-25 04:55] LABS: ALBUMIN 2.2 g/dL (3.4-5.0); CALCIUM 8.3 mg/dL (8.5-10.1); CREATININE 1.1 mg/dL (0.7-1.3); PHOSPHORUS 2.2 mg/dL (2.6-4.7)
[2021-05-25 04:57] LABS: POTASSIUM 3.5 mmol/L (3.5-5.1)
[2021-05-25 06:21] LABS: PLATELET COUNT 78 thou/uL (150-400)
--- NOTE | 2021-05-25 07:45 | NUR ---
Dr. Jurado here. Update given. Reported K 3.5. General update given. MD states ok to transfer.
--- NOTE | 2021-05-25 09:00 | NUR ---
Called Dr. Cheng, re: transfer orders. Update given, orders given.
--- NOTE | 2021-05-25 10:10 | NUR ---
Tranfered via wc to 357. All belongings with pt.
--- NOTE | 2021-05-25 11:13 | NUR ---
CM called gilberto, no answer, left another message requesting a call back. Possible will be able to move out of the ICU today.
--- NOTE | 2021-05-25 19:18 | NUR ---
PT TRANSFERRED FROM ICU TO ROOM 357. ALERT AND ORIENTED X4. ON ROOM AIR, NO SIGNS OF DISTRESS NOTED. DENIES ANY PAIN. UP INTHE CHAIR MOST OF THE DAY. SCHEDULE 15UNITS OF INSULIN NOT GIVEN AT NOON AND DINNER DUE TO PATIENT NOT EATING. FALL PRECAUTIONS IN PLACE. DENIES ANY NEEDS AT MOMENT.
[2021-05-26 00:04] VITALS: BP 116/69
[2021-05-26 03:27] VITALS: BP 100/62
--- NOTE | 2021-05-26 05:05 | NUR ---
CONTINUES ON ROOM AIR. CONTINUES ON MAINT. IV FLUIDS AT 200 ML/HR. NO DISCHARGE CONCERNS VOICED.
[2021-05-26 05:20] LABS: HEMATOCRIT 28.6 % (42.0-52.0); HEMOGLOBIN 9.4 gm/dL (14.0-18.0); MCH 24.5 pg (26.0-34.0); MCHC 32.7 g/dL (28.0-37.0); MCV 74.7 fL (80.0-100.0); RBC 3.82 mil/uL (4.50-6.00); RDW 15.3 % (10.5-14.5); WBC 6.3 thou/uL (4.0-11.0)
[2021-05-26 05:59] LABS: ALBUMIN 1.9 g/dL (3.4-5.0); CALCIUM 7.6 mg/dL (8.5-10.1); PHOSPHORUS 2.1 mg/dL (2.5-4.9); POTASSIUM 3.2 mmol/L (3.5-5.1)
[2021-05-26 06:16] VITALS: BP 103/66
--- NOTE | 2021-05-26 11:36 | NUR ---
report given to Rosio on 4S. pt in stable condition upon transfer. 4 units of insulin given for BS of 126 prior to transfer. D5 1/4 NS at 75 infusing along with Potassium at 64 ml/hr per order. Midline and PIV in place infusing well. alvarado catheter remains in place, Dependent drainage, yellow output. SCD's in place. no oxygen required.
--- NOTE | 2021-05-26 14:20 | NUR ---
1410 pt transfered to 4S. updates given to charge nurse and staff.
--- NOTE | 2021-05-26 16:11 | NUR ---
SALBADOR reviewed chart and spoke with nursing and attending physician. Pt is slowly progressing towards goals for discharge. Pt had fever overnight. Pt was transferred to from 3W earlier today. SW met with pt at bedside to discuss discharge plan. Pt states he lives at home with his . He does not use any DME for ambulation. Pt denies having HH services in the past or going to post-acute care. Pt's PCP is Dr. Emili Mullen. SW discussed referral for HH services at time of discharge to assist with med mgmt and DM education. Pt agreeable and asks SW to contact his . SALBADOR spoke with pt's , Catrachita, via phone. Introduced role of SW. Pt's states she was at the hospital when pt moved to . SW discussed discharge planning. Pt's states she is agreeable with HH and prefers he come home v. going to post-acute care. Options for HH agencies provided. No preference voiced. SALBADOR confirmed pt's home address and phone number. SALBADOR faxed referral to [facility] for review. SALBADOR spoke with intake who states they do take [employer] insurance. [facility] to review referral. SALBADOR is following to assist as needed with discharge planning.
[2021-05-26 16:17] VITALS: BP 120/72
[2021-05-26 20:16] VITALS: BP 112/70
--- NOTE | 2021-05-27 04:09 | NUR ---
ASSUMED PT CARE THIS OM. PT IS ALERT AND ORIENTED X4. PT SLEPT THROUGHOUT THE NIGHT. PT HAS IROS IN PLACE. MEDS WERE GIVEN PER EMAR ORDERS. PT IS ON RA. NO VISIBLE SIGN OF DISTRESS NOTED. FALL PRECAUTIONS IN PLACE. WILL CONTINUE TO MONITOR.
[2021-05-27 05:19] LABS: ALBUMIN 1.8 g/dL (3.4-5.0); CALCIUM 7.7 mg/dL (8.5-10.1); CREATININE 1.1 mg/dL (0.7-1.3); HEMATOCRIT 27.8 % (42.0-52.0); HEMOGLOBIN 9.1 gm/dL (14.0-18.0); MCH 24.6 pg (26.0-34.0); MCHC 32.7 g/dL (28.0-37.0); MCV 75.2 fL (80.0-100.0); PHOSPHORUS 2.8 mg/dL (2.5-4.9); RBC 3.69 mil/uL (4.50-6.00); RDW 15.2 % (10.5-14.5); WBC 8.4 thou/uL (4.0-11.0)
[2021-05-27 07:38] LABS: URINE BILIRUBIN NEGATIVE (Negative); URINE BLOOD 3+ (Negative); URINE CLARITY CLEAR; URINE COLOR YELLOW; URINE GLUCOSE-RANDOM* TRACE (Negative); URINE KETONES NEGATIVE (Negative); URINE LEUKOCYTES-REFLEX NEGATIVE (Negative); URINE NITRITE-REFLEX NEGATIVE (Negative); URINE PROTEIN (DIPSTICK) NEGATIVE (Negative); URINE UROBILINOGEN 0.2 E.U./dl (0.2-1.0)
[2021-05-27 08:33] LABS: CASTS None Seen /LPF (None Seen); SQUAMOUS 0-3 Few /LPF (0-3)
[2021-05-27 08:34] LABS: BACTERIA-REFLEX 1-9 Few /HPF (None Seen); CRYSTALS None Seen /LPF (None Seen); URINE WBC-REFLEX None Seen /HPF (0-5)
--- NOTE | 2021-05-27 09:43 | NUR ---
PT HAS POSITIVE BLOOD CULTURES. DR NAQVI NOTIFIED.
[2021-05-27 12:40] LABS: ALBUMIN 1.8 g/dL (3.4-5.0); DIRECT BILIRUBIN 0.1 mg/dL (<0.1-0.2); TOTAL BILIRUBIN 0.3 mg/dL (0.2-1.0); TOTAL PROTEIN 5.5 g/dL (6.4-8.2)
[2021-05-27 19:03] VITALS: BP 135/75
--- NOTE | 2021-05-28 04:45 | NUR ---
Assumed pt care at 1900. A/OX4,VSS.Denies pain on assessment, no N/V. Up with AX1. Wilson patent to DD with light yellow urine. Fall precautions in place,calls approp for help.Will continue to monitor pt.
[2021-05-28 05:21] LABS: HEMATOCRIT 29.7 % (42.0-52.0); HEMOGLOBIN 9.6 gm/dL (14.0-18.0); MCH 24.6 pg (26.0-34.0); MCHC 32.3 g/dL (28.0-37.0); MCV 76.1 fL (80.0-100.0); RBC 3.9 mil/uL (4.50-6.00); RDW 15.2 % (10.5-14.5); WBC 10.1 thou/uL (4.0-11.0)
[2021-05-28 05:34] LABS: CREATININE 1.1 mg/dL (0.7-1.3); POTASSIUM 3.5 mmol/L (3.5-5.1)
--- NOTE | 2021-05-28 08:21 | HC ---
[facility] [place] [address] CONSULTATION Name: NURIA GREY Room #: 437-P ADM IN M.R.#: [id number] Admission: 05/23/21 Attend Phys: Jose Zuniga MD Discharge: Date of : 41 Report #: [id number] THIS REPORT FOR: cc: Emili Mullen MD,Emili Drew,Jamie Andrew MD ~ DATE OF SERVICE: 05/27/2021 INFECTIOUS DISEASE CONSULTATION ATTENDING PHYSICIAN: Dr. Zuniga. REASON FOR EVALUATION: Positive blood culture. HISTORY OF PRESENT ILLNESS: Chart reviewed. The patient examined. This is a 76-year-old gentleman with known history of diabetes mellitus, poorly controlled, who presented to the Emergency Room with weakness. He notes that it had been a progressive thing and associated fatigue, did have some abdominal related complaints with discomfort. He notes he has been on insulin. Blood sugars however have been significantly elevated. Evaluation was undertaken, was found to have marked hyperglycemia, greater than 500. He was placed on insulin drip. He was found to be hypernatremic as well, mild renal insufficiency. Hemoglobin A1c was confirmed to be greater than 15.5. At the time of admission, blood cultures were collected now with 1 or 2 growing gram-positive cocci. He is uncertain if he had significant fevers, in fact, he states he has no recollection of coming to the hospital. Did undergo an abdominal ultrasound today due to abdominal related pain, sludge in the gallbladder without evidence of obstructive process or cholecystitis. He has not been placed on antibiotics today. ALLERGIES: None known. CURRENT MEDICATIONS: Include insulin lispro, insulin glargine. PAST MEDICAL HISTORY: As described above, diabetes mellitus, insulin requiring; hypertension; hyperlipidemia; has known coronary artery disease. SOCIAL HISTORY: Nonsmoker. No ethanol, no illicit drug use. FAMILY HISTORY: Noncontributory. REVIEW OF SYSTEMS: Otherwise, unremarkable with the exception of the above. PHYSICAL EXAMINATION: GENERAL: He appears ill, not overtly toxic. He is perhaps mildly encephalopathic, undernourished. [address] [address] CONSULTATION Name: NURIA GREY Room #: 437-P [facility] IN M.R.#: [id number] Admission: 05/23/21 Attend Phys: Jose Zuniga MD Discharge: Date of : 41 Report #: [id number] VITAL SIGNS: T-max of 100.9, more recently 99.6, pulse 86, respirations 18, blood pressure 112/70. SKIN: Warm, dry, no rashes. HEENT: Normocephalic. Extraocular muscles intact. NECK: Supple. LUNGS: Diminished breath sounds, has some scattered crackles at the bases. HEART: Regular, has soft systolic murmur. ABDOMEN: Mildly distended, somewhat firm, mildly tender. There are no peritoneal signs. GENITOURINARY AND RECTAL: Deferred. LABORATORY DATA: As described above. Blood cultures 1 out of 2 with gram-positive cocci noted in the broth. Urinalysis on repeat showed no white cells. Electrolytes: Sodium 144, potassium 3.0, chloride 110, bicarbonate is 26, anion gap of 7, BUN and creatinine 1.1, glucose of 78, albumin 1.8. CBC: White count of 8.4, H and H 9.1 and 27.8, platelets of 75. Procalcitonin yesterday 0.12. Chest x-ray, minimal development of atelectasis, no acute process. Initial liver functions were otherwise unremarkable. ASSESSMENT AND PLAN: Positive blood culture. The patient with presentation with uncontrolled diabetes mellitus, acidemia and hypernatremia, marked hyperglycemia and suspect the blood cultures are likely a false positive given the delay in growth 1 out of 2 sets from broth only. He has had low-grade temperature elevations and having identified an infection at this point certainly could be viral. No evidence of pneumonitis or urinary tract infection. We will do additional diagnostic testing. Await results of the culture. We will dose with empiric therapy. Remains tenuous. Continue to monitor expectantly, supportive care. <ELECTRONICALLY SIGNED> By: Jamie Drew MD 05/28/21 0821 1112 1944 Jamie Drew MD /nt
[2021-05-28 09:13] VITALS: BP 121/81
--- NOTE | 2021-05-28 11:35 | EKG ---
[address] [address] ELECTROCARDIOGRAM REPORT Name: NURIA GREY Room #: 437-P ADM IN M.R.#: [id number] Admission: 05/23/21 Attend Phys: Jose Zuniga MD Discharge: Date of : 41 Report #: [id number] [facility] Test Date: 2021-05-28 Test Time: 10:36:52 Pat Name: NURIA GREY Department: Room: 437 P Gender: M Slot Router: YONY : 1945 Requested By: Fabricio Leigh Order Number: [id number] MD: Steven Price Measurements Intervals [place] Rate: 81 P: 31 ND: 147 QRS: -2 QRSD: 74 T: 16 QT: 371 QTc: 431 Interpretive Statements Sinus rhythm Anteroseptal infarct, old Compared to ECG 05/23/2021 00:53:07 Myocardial infarct finding still present Electronically Signed On 05-28-2021 11:34:45 [employer]RNAMENTAL MET[employer] WORKER by Steven Price [email or web address] <ELECTRONICALLY SIGNED> By: Steven Price MD 05/28/21 1134 35 Steven Price MD /ALIZE
--- NOTE | 2021-05-28 12:21 | 2DMMODE ---
[facility] [place] [address] 2 D/M-MODE ECHOCARDIOGRAM Name: NURIA GREY Room #: 437-P ADM IN M.R.#: [id number] Admission: 05/23/21 Attend Phys: Jose Zuniga MD Discharge: Date of : 41 Report #: [id number] THIS REPORT FOR: cc: Emili Mullen MD,Kadeem Pillai MD, MD [facility] ~ APPROVED REPORT Study performed: 05/28/2021 11:30:20 EXAM: Limited 2D, Doppler, and color-flow Echocardiogram Patient Location: Bedside Room #: [facility] Status: routine BSA: 1.76 HR: 84 bpm BP: 121/81 mmHg Rhythm: NSR Other Information Study Quality: Adequate Indications Limited echo to rule out endocarditis in the presence of fever and positive blood cultures. ( Complete echo done 03/03/21 ). Hx: CAD, PCI, DM, HTN, HLP. 2D Dimensions LVOT Diam: 21.82 (18-24mm) Aortic Root: 40.13 mm Aortic Valve AoV Peak Jhonny.: 2.00 m/s AO Peak Gr.: 16.02 mmHg LVOT Max P.58 mmHg AO Mean Gr.: 9.45 mmHg AO V2 Mean: 1.47 m/s LVOT Max V: 1.28 m/s AO V2 VTI: 33.47 cm BALAJI Vmax: 2.40 cm2 Tricuspid Valve TR Peak Jhonny.: 2.66 m/s RAP Estimate: 5.00 mmHg TR Peak Gr.: 28.38 mmHg PA Pressure: 33.00 mmHg [facility] [address] [place] [address] 2 D/M-MODE ECHOCARDIOGRAM Name: NURIA GREY Room #: 437-P [facility] IN .R.#: [id number] Admission: 05/23/21 Attend Phys: Jose Zuniga MD Discharge: Date of : 41 Report #: [id number] Left Ventricle The left ventricle is normal size. Mild basal septal hypertrophy is present. Left ventricular systolic function is normal. LVEF is 60%. Mild diastolic dysfunction is present (impaired relaxation pattern). Right Ventricle The right ventricle is normal size. The right ventricular systolic function is normal. Atria The left atrium size is normal. The right atrium size is normal. Aortic Valve Aortic valve moderately calcified but has adequate excursion. Trace aortic regurgitation. Mitral Valve The mitral valve is normal in structure. Moderate mitral annular calcification. There is no mitral valve regurgitation noted. No evidence of mitral valve stenosis. Tricuspid Valve The tricuspid valve is normal in structure. Trace tricuspid regurgitation. Estimated PAP is 23mmHg. Pulmonic Valve The pulmonary valve is normal in structure. There is no pulmonic valvular regurgitation. Great Vessels Aortic root is dilated (4.0cm). IVC is normal in size and collapses >50% with inspiration. Pericardium There is no pericardial effusion. <Conclusion> Normal left ventricle size with mild septal hypertrophy Ejection fraction 60% Grade 1 diastolic dysfunction Normal right ventricle size/function Normal atrial size Mild aortic valve calcification without stenosis Moderate mitral annular calcification [facility] [address] [place] [address] 2 D/M-MODE ECHOCARDIOGRAM Name: NURIA GREY Room #: 437-P [facility] IN ..#: [id number] Admission: 05/23/21 Attend Phys: Jose Zuniga MD Discharge: Date of : 41 Report #: [id number] Trace tricuspid valve insufficiency Pulmonary systolic pressure estimated 23 mmHg No pericardial effusion Aortic root mildly dilated 4 cm <ELECTRONICALLY SIGNED> By: Kadeem Aguirre MD, FACC 05/28/21 1221 20 20 Kadeem Aguirre MD, FACC /INF
--- NOTE | 2021-05-28 16:25 | NUR ---
ASSUMED CARE OF PT AT 0700, VSS. FEBRILE WITH LOW GRADE. 99.1. NO RESPIRATORY DISTRESS. A0X4. GIVEN IV ANTIOBIOTICS. PT AMBULATED WITH PHYSICAL THERAPY AND STATED HE FELT CHEST PAIN. DR PERALES NOTIFIED, EKG DONE. LABS DRAWN. CHEST PAIN RESOLVED SHORLTY AFTER LAYING BACK DOWN. FAMILY CURRENTLY AT BEDSIDE. WAITING TO FINISH COURSE OF ABX AND HOME HEALTH REFERRAL. NO OTHER COMPLAINTS. WILL CONTINUE TO MONITOR PT.
--- NOTE | 2021-05-28 17:17 | NUR ---
Referral to [facility] however they are not answering the phone. Referral to [facility] care but they are full and cannot see patient until next week. Referral to [facility]. THey have patient scheduled for Monday in case dc over weekend. If dc over weekend. Patient has walker for home Call [facility] to alert of discharge. [phone] Fax orders to [phone]
[2021-05-28 20:49] VITALS: BP 150/73
--- NOTE | 2021-05-29 01:23 | NUR ---
ASSUME DPT CARE AT 1900.PT DENIED PAIN/N/V SO FAR.BG MONITORED AT HS,NO COVERAGE NEEDED.PT ALERT AND ABLE TO MAKE HIS NEEDS KNOW.PT AFEBRILE SINCE START OF SHIFT.RIOS CATH IN PLACE TO DD,LIGHT YELLOW URINE NOTED IN THE BAG.PT RESTING WELL ON HIS BED.CALL LIGHT WITHIN REACH.
[2021-05-29 05:44] LABS: MCH 23.2 pg (26.0-34.0); MCHC 30.8 g/dL (28.0-37.0); MCV 75.3 fL (80.0-100.0); RBC 5.58 mil/uL (4.50-6.00); RDW 15.5 % (10.5-14.5)
[2021-05-29 05:47] LABS: HEMOGLOBIN 12.9 gm/dL (14.0-18.0)
[2021-05-29 06:12] LABS: CALCIUM 7.9 mg/dL (8.5-10.1); CREATININE 1.1 mg/dL (0.7-1.3); POTASSIUM 3.3 mmol/L (3.5-5.1)
[2021-05-29 07:25] VITALS: BP 144/84
[2021-05-29 09:23] LABS: % SATURATION 24 % (20-39); IRON 23 ug/dL (65-175); TIBC 95 ug/dL (250-450)
[2021-05-29 12:00] VITALS: BP 147/84
--- NOTE | 2021-05-29 15:42 | NUR ---
Patient is afebrile this shift. FSBS stablized with Lantus & Lispro. Patient educated on eating a high protein snack at bedtime. Patient is SBA with a walker; tolerating well. Rehab reccommends Home with Home health for this patient. Denies pain. Patient appears to be medically stable. Voicing no further needs
[2021-05-29 16:45] VITALS: BP 122/83
[2021-05-29 19:53] VITALS: BP 134/80
--- NOTE | 2021-05-30 04:21 | NUR ---
PT WAS OBSERVED SITTING UP IN THE RECLINER IN HIS ROOM WATCHING TV AT START OF SHIFT.PT APPEAR TO BE IN A GOOD MOOD.PT C/O PAIN AT THE SOLE OF MAE FOOT.PT AFEBRILE SO FAR.PT HAD A SMALL BM THIS SHIFT.RIOS CATH IN PLACE WITH ADEQUATE URINE OUTPUT.PT RESTING ON HIS BED AT THIS TIME.CALL LIGHT WITHIN REACH.
[2021-05-30 05:54] LABS: HEMATOCRIT 23.7 % (42.0-52.0); MCH 24.5 pg (26.0-34.0); MCHC 32.8 g/dL (28.0-37.0); MCV 74.7 fL (80.0-100.0); RBC 3.18 mil/uL (4.50-6.00); RDW 15.3 % (10.5-14.5); WBC 8.1 thou/uL (4.0-11.0)
[2021-05-30 05:58] LABS: HEMOGLOBIN 7.8 gm/dL (14.0-18.0)
[2021-05-30 06:12] LABS: CALCIUM 7.9 mg/dL (8.5-10.1); CREATININE 1.1 mg/dL (0.7-1.3); POTASSIUM 3.2 mmol/L (3.5-5.1)
[2021-05-30 09:00] VITALS: BP 121/75
[2021-05-30 09:46] LABS: MCV 76.5 fL (80.0-100.0)
[2021-05-30 09:49] LABS: HEMATOCRIT 24.4 % (42.0-52.0); HEMOGLOBIN 7.9 gm/dL (14.0-18.0); MCH 24.8 pg (26.0-34.0); MCHC 32.4 g/dL (28.0-37.0); RBC 3.19 mil/uL (4.50-6.00); RDW 15.6 % (10.5-14.5); WBC 11.8 thou/uL (4.0-11.0)
--- NOTE | 2021-05-30 16:46 | NUR ---
PT ASSESSED AT START OF SHIFT. SOMEWHAT FORGETFUL. NAPS FREQUENTLY. UP W/ WALKER TO THE CHAIR FOR FEW HOURS AND VISIING. APPETITE IS FAIR. BP AND GLUCOSE DOING MUCH BETTER. NO C/O PAIN.
[2021-05-30 20:17] VITALS: BP 122/63
--- NOTE | 2021-05-31 03:43 | NUR ---
Assumed care on 05/30/21 @ 1915, VSS FSBS 174 and 6 units of s/s insulin provided. IV antibiotics provided as ordered, tolerated well. Patient cooperative and apreciative with care. A&Ox2, but forgetful. Wilson catheter draining tonio urine to gravity. Call light within reach, bed in low position and bed alarm is set.
[2021-05-31 06:40] LABS: CALCIUM 7.7 mg/dL (8.5-10.1); POTASSIUM 3.4 mmol/L (3.5-5.1)
[2021-05-31 08:31] VITALS: BP 132/72
--- NOTE | 2021-05-31 10:41 | NUR ---
A/O X 3 SELF, SITUATION, TIME, FORGETFUL, ROOM AIR, ONE ASSIST WITH WALKER, RIGHT UPPER ARM PIV SALINE LOCKED, RIOS IN PLACE CHARLY URINE IN BAG, AC HS ACCU CKECKS- NO INSULIN NEEDED FOR BS 94 @ BREAKFAST, NO PAIN NOTED AT THIS TIME, PT GOT PATIENT UP IN CHAIR
[2021-05-31 13:20] VITALS: BP 129/78
--- NOTE | 2021-05-31 16:25 | NUR ---
Patient has walker and updated [facility] no dc over weekend.
[2021-05-31 17:14] VITALS: BP 129/65
[2021-05-31 20:22] VITALS: BP 141/72
[2021-05-31 22:06] LABS: M-SPIKE Not Observed g/dL (Not Observed)
[2021-06-01 03:31] LABS: CALCIUM 7.9 mg/dL (8.5-10.1); CREATININE 1.1 mg/dL (0.7-1.3); MAGNESIUM 2.2 mg/dL (1.8-2.4); POTASSIUM 3.4 mmol/L (3.5-5.1)
[2021-06-01 03:42] LABS: HEMATOCRIT 23.1 % (42.0-52.0); HEMOGLOBIN 7.5 gm/dL (14.0-18.0); MCH 24.5 pg (26.0-34.0); MCHC 32.7 g/dL (28.0-37.0); MCV 74.8 fL (80.0-100.0); RBC 3.09 mil/uL (4.50-6.00); RDW 15.1 % (10.5-14.5); WBC 8.4 thou/uL (4.0-11.0)
--- NOTE | 2021-06-01 05:13 | NUR ---
ASSUMED PT CARE THIS PM. PT IS ALERT AND ORIENTED X3 WITH FORGETFULNESS. PT DID NOT C/O PAIN. MEDS WERE GIVEN PER EMAR ORDERS. FALL PRECAUTIONS IN PLACE.WILL CONTINUE TO MONITOR.
[2021-06-01 07:31] VITALS: BP 123/72
[2021-06-01 11:06] LABS: ALBUMIN 1.6 g/dL (3.4-5.0); DIRECT BILIRUBIN < 0.1 mg/dL (<0.1-0.2); SGOT 19 U/L (15-37); SGPT 43 U/L (30-65); TOTAL BILIRUBIN 0.3 mg/dL (0.2-1.0); TOTAL PROTEIN 6.3 g/dL (6.4-8.2)
[2021-06-01 15:52] VITALS: BP 110/67
--- NOTE | 2021-06-01 17:52 | NUR ---
Patient was not able to have another BM yet. Patient is not constipated so miralax was not offered. Patient continues to get up SBA with a walker with no issues. Appetite is adequate. FSBS elevated this shift; insulin administered per orders. Patient denies pain. Fall precautions in place
[2021-06-01 20:46] VITALS: BP 139/74
--- NOTE | 2021-06-02 05:12 | NUR ---
ASSUMED PT CARE THIS EVENING. PT IS ALERT AND ORIENTED 3-4 WITH FORGETFULNESS. PT DID NOT VERBALIZE ANY CONCERNS. PT WAS INFORMED ABOUT THE NEED FOR STOOL SAMPLE AND PT VERBALIZED UNDERSTANDING. PT HAS RIOS IN PLACE. MED WERE GIVEN PER EMAR ORDERS. FALL PRECAUTIONS IN PLACE. WILL CONTINUE TO MONITOR
[2021-06-02 06:24] LABS: HEMATOCRIT 23.6 % (42.0-52.0); HEMOGLOBIN 7.8 gm/dL (14.0-18.0); MCH 24.7 pg (26.0-34.0); MCHC 33.3 g/dL (28.0-37.0); MCV 74.3 fL (80.0-100.0); RBC 3.17 mil/uL (4.50-6.00); RDW 15.4 % (10.5-14.5); WBC 8.5 thou/uL (4.0-11.0)
[2021-06-02 06:32] LABS: CALCIUM 8.4 mg/dL (8.5-10.1); MAGNESIUM 2.2 mg/dL (1.8-2.4); POTASSIUM 3.8 mmol/L (3.5-5.1)
[2021-06-02 07:30] VITALS: BP 123/76
[2021-06-02 10:37] VITALS: BP 123/76
[2021-06-02] MEDS ORDERED: AMOX TR-K CLV1 EAC4 PO (15:34)
[2021-06-02] MEDS ORDERED: CLOPIDOGREL75 MG PO (15:34)
[2021-06-02] MEDS ORDERED: IRON325 PO (15:34)
[2021-06-02] MEDS ORDERED: COZAAR 25 MG TA25 M1 PO (15:35)
[2021-06-02] MEDS ORDERED: IMDUR 30 MG TAB30 M1 PO (15:35)
[2021-06-02] MEDS ORDERED: COLCHICINE0.6 M1 PO (15:36)
[2021-06-02] MEDS ORDERED: LANTUS SUBQ (15:36)
[2021-06-02 15:41] VITALS: BP 118/71
--- NOTE | 2021-06-02 19:36 | NUR ---
occult stool results still pending. Patient to discharge once results complete; patients does not drive at night
[2021-06-02 20:45] VITALS: BP 110/69
--- NOTE | 2021-06-03 04:14 | NUR ---
ASSUMED PT CARE THIS PM. PT IS ALERT AND ORIENTEDX4. PT WAS SUPPOSED TO BE DISCHARGED BUT LAB RESULTS IS STILL PENDING AND PER PT DOESN'T DRIVE AT NIGHT. PT HAS RIOS AND MIDLINE TO THE CHEPE IN PLACE. PT IS ON RA. NO CONCERNS WERE EXPRESSED BY PT. NO VISIBLE SIGN OF DISTRESS WAS NOTED. FALL PRECAUTIONS IN PLACE. WILL CONTINUE TO MONITOR.
[2021-06-03 05:53] LABS: CALCIUM 8.4 mg/dL (8.5-10.1); MAGNESIUM 2.1 mg/dL (1.8-2.4); POTASSIUM 3.7 mmol/L (3.5-5.1)
[2021-06-03 07:15] VITALS: BP 141/74
[2021-06-03 08:44] LABS: HEMATOCRIT 24.3 % (42.0-52.0); HEMOGLOBIN 7.8 gm/dL (14.0-18.0); MCH 24.2 pg (26.0-34.0); MCV 75.5 fL (80.0-100.0); RBC 3.22 mil/uL (4.50-6.00); RDW 15.3 % (10.5-14.5); WBC 8.8 thou/uL (4.0-11.0)
--- NOTE | 2021-06-03 12:29 | NUR ---
Patient to dc home with home health care. [facility] Discussed HH care with patient. to arrive at 1400 per patient to take him home.
[2021-06-03 14:11] VITALS: BP 123/76
--- NOTE | 2021-06-03 15:00 | NUR ---
PT ASSESSED AT START OF SHIFT. GETTING STRONGER. AMBULATING STEADY W/ WALKER W/ STANDBY. EATING WELL. MENTATION GETTING BETTER. NO C/O PAIN. TEACHING DONE RE IMPORTANCE OF TAKING BLOOD SUGARS AT HOME AND RECORDING FOR HIS FAMILY TEACHING W/ TO OVERSEE HIS MEDICATIONS. PT DISCHARGING HOME W/ HOME HEALTH AT THIS TIME.
== END 2021-06-03 15:00 | disposition home health service (06) | DRG 637 ==
LOC: ER 00:09 → 4S 01:56 → ICU 01:56 → EROBS 01:56 → ICU 07:34 → 3W 05-25 09:50 → 4S 05-26 14:10
PROVIDERS: Emergency Medicine; Hospitalist; Internal Medicine; Nurse Practitioner Family; Specialist; ADMIT Hospitalist; ATTEND Hospitalist
PROC: 05H933Z Insertion of Infusion Device into Right Brachial Vein, Percutaneous Approach (ICD-10-PCS; principal; 2021-05-23)
DX: E11.10 Type 2 diabetes mellitus with ketoacidosis without coma (principal); J15.9 Unspecified bacterial pneumonia; N17.9 Acute kidney failure, unspecified; E87.0 Hyperosmolality and hypernatremia; E46 Unspecified protein-calorie malnutrition; J98.11 Atelectasis; I24.8 Other forms of acute ischemic heart disease; D69.6 Thrombocytopenia, unspecified; D50.9 Iron deficiency anemia, unspecified; Z20.822 Contact with and (suspected) exposure to COVID-19; Z68.21 Body mass index [BMI] 21.0-21.9, adult; I25.10 Atherosclerotic heart disease of native coronary artery without angina pectoris; E78.5 Hyperlipidemia, unspecified; I25.2 Old myocardial infarction; I10 Essential (primary) hypertension; D64.9 Anemia, unspecified; E88.09 Other disorders of plasma-protein metabolism, not elsewhere classified; K21.9 Gastro-esophageal reflux disease without esophagitis; E05.00 Thyrotoxicosis with diffuse goiter without thyrotoxic crisis or storm; M10.9 Gout, unspecified
CPT/HCPCS: 10078; 10080; 10195; 10879; 27000